=== PATIENT | female | born 1935 | race Caucasian/White ===

== ENCOUNTER 2016-09-12 19:02 | Emergency (ER) | payer MEDICARE, BC | END 2016-09-12 20:12 | disposition home or self-care (01) | LOC: ER 19:02 | DX: S81.812A Laceration without foreign body, left lower leg, initial encounter (principal); E78.5 Hyperlipidemia, unspecified; K21.9 Gastro-esophageal reflux disease without esophagitis; I10 Essential (primary) hypertension; Z90.710 Acquired absence of both cervix and uterus; Z88.0 Allergy status to penicillin; W26.8XXA Contact with other sharp object(s), not elsewhere classified, initial encounter ==